=== PATIENT | male | born 1965 | race Caucasian/White ===

== ENCOUNTER 2022-11-22 07:51 | Outpatient (CLI) | payer OTHER, SELFPAY ==
--- NOTE | ~2022-11-22 | XR_ITS ---
EXAMINATION: XR chest 2V DATE: 11/22/2022 08:09 INDICATION: Wheezing. Cough. TECHNIQUE: Frontal and lateral views of the chest were obtained. COMPARISON: Chest 2 views 03/29/2017, CT abdomen and pelvis 07/07/2014 FINDINGS: There is mild atelectasis at left lung base. No pleural effusion or pneumothorax. The heart size is normal. There is chronic anterior wedging of multiple midthoracic vertebral bodies. IMPRESSION: 1. Mild atelectasis at left lung base. Reviewed, dictated and finalized at location A.
== END 2022-11-22 07:52 ==
DX: J98.11 Atelectasis (principal)
CPT/HCPCS: 71046